=== PATIENT | female | born 1970 | race American Indian/Alaskan Native ===

== ENCOUNTER 2017-01-12 11:38 | Inpatient (IN) | payer BC ==
[2017-01-12] MEDS ORDERED: LOPRESSOR IV ONE (12:19)
[2017-01-12] MEDS ORDERED: NITRO-BID 2% TP ONE (12:19)
[2017-01-12] MEDS ORDERED: ASPIRIN PO ONE (12:19)
[2017-01-12] MEDS ORDERED: NITROSTAT SL ONE (12:19)
--- NOTE | 2017-01-12 12:24 | Emergency Department Report ---
ED Chest Pain HPI - General Chief Complaint: Chest Pain Stated Complaint: SOB/CHEST PAIN Time Seen by Provider: 01/12/17 12:17 Source: patient Mode of arrival: Ambulatory Limitations: No Limitations - History of Present Illness MD Complaint: chest pain -: Gradual Pain Location: substernal Pain Radiation: none Severity: moderate Severity scale (0 -10): 4 Quality: tightness, heaviness Consistency: constant Improves With: nothing Worsens With: nothing re: nausea Other Symptoms: denies: cough, fever, syncope, rash, acid taste in mouth, leg swelling, palpitations, burping, other Treatments Prior to Arrival: none Aspirin use within the Past 7 Days: (1) Yes - Related Data On Oral Contraceptives: No Home Medications Medication Instructions Recorded Confirmed Last Taken AtorvaSTATin [Lipitor] 40 mg PO QHS 01/12/17 01/12/17 Unknown metFORMIN [Glucophage] 850 mg PO BID 01/12/17 01/12/17 Unknown Previous Rx's Medication Instructions Recorded Last Taken Type ALBUTEROL Inhaler [ProAir HFA 2 puff IH QID PRN #30 inhalation 01/13/17 Unknown Rx Inhaler] Aspirin [Aspirin BABY CHEW TAB] 81 mg PO DAILY #30 tab.chew 01/13/17 Unknown Rx Carvedilol [Coreg] 6.25 mg PO BID #60 tablet 01/13/17 Unknown Rx Hydrochlorothiazide [HCTZ] 25 mg PO DAILY #30 tablet 01/13/17 Unknown Rx Lisinopril [Zestril TAB] 40 mg PO QDAY #30 tablet 01/13/17 Unknown Rx Allergies Allergy/AdvReac Type Severity Reaction Status Date / Time diphenhydramine HCl Allergy Itching Verified 10/03/15 00:27 [From Benadryl] Penicillins Allergy Itching Verified 07/27/13 23:35 [place] score - [place] Score Age > 65: (0) No Aspirin use within the Past 7 Days: (1) Yes 3 or more CAD Risk Factors: (0) No 2 or more Angina events in past 24 hrs: (0) No Known CAD with more than 50% Stenosis: (0) No Elevated Cardiac Markers: (0) No ST Deviation Greater than 0.5mm: (0) No [place] Score: 1 ED Review of Systems ROS: Stated complaint: SOB/CHEST PAIN Other details as noted in HPI Comment: All other systems reviewed and negative Constitutional: denies: chills, fever Eyes: denies: eye pain, eye discharge, vision change ENT: denies: ear pain, throat pain Respiratory: denies: cough, shortness of breath, wheezing Cardiovascular: denies: chest pain, palpitations Endocrine: no symptoms reported Gastrointestinal: denies: abdominal pain, nausea, diarrhea Genitourinary: denies: urgency, dysuria, discharge Musculoskeletal: denies: back pain, joint swelling, arthralgia Skin: denies: rash, lesions Neurological: denies: headache, weakness, paresthesias Psychiatric: denies: anxiety, depression Hematological/Lymphatic: denies: easy bleeding, easy bruising ED Past Medical Hx - Past Medical History Previous Medical History?: Yes Hx Hypertension: Yes Hx CVA: Yes - Surgical History Past Surgical History?: Yes Additional Surgical History: x 2 - Social History Smoking Status: Current Every Day Smoker Substance Use Type: None - Medications Home Medications: Home Medications Medication Instructions Recorded Confirmed Last Taken Type AtorvaSTATin [Lipitor] 40 mg PO QHS 01/12/17 01/12/17 Unknown History metFORMIN [Glucophage] 850 mg PO BID 01/12/17 01/12/17 Unknown History ALBUTEROL Inhaler [ProAir HFA 2 puff IH QID PRN #30 inhalation 01/13/17 Unknown Rx Inhaler] Aspirin [Aspirin BABY CHEW TAB] 81 mg PO DAILY #30 tab.chew 01/13/17 Unknown Rx Carvedilol [Coreg] 6.25 mg PO BID #60 tablet 01/13/17 Unknown Rx Hydrochlorothiazide [HCTZ] 25 mg PO DAILY #30 tablet 01/13/17 Unknown Rx Lisinopril [Zestril TAB] 40 mg PO QDAY #30 tablet 01/13/17 Unknown Rx ED Physical Exam - General Limitations: No Limitations General appearance: alert, in no apparent distress - Head Head exam: Present: atraumatic, normocephalic - Eye Eye exam: Present: normal appearance - ENT ENT exam: Present: mucous membranes moist - Neck Neck exam: Present: normal inspection - Respiratory Respiratory exam: Present: normal lung sounds bilaterally. Absent: respiratory distress - Cardiovascular Cardiovascular Exam: Present: regular rate, normal rhythm, normal heart sounds. Absent: irregular rhythm, systolic murmur, diastolic murmur, rubs, gallop, JVD , S3, S4 - GI/Abdominal GI/Abdominal exam: Present: soft, normal bowel sounds. Absent: distended, tenderness, guarding - Extremities Exam Extremities exam: Present: normal inspection - Back Exam Back exam: Present: normal inspection - Neurological Exam Neurological exam: Present: alert, oriented X3 - Psychiatric Psychiatric exam: Present: normal affect, normal mood - Skin Skin exam: Present: warm, dry, intact, normal color. Absent: rash ED Course Vital Signs 01/12/17 01/12/17 01/12/17 11:45 12:30 12:47 Temperature 98.6 F Pulse Rate 101 H 70 Respiratory 18 16 Rate Blood Pressure 221/115 178/88 Blood Pressure [Right] O2 Sat by Pulse 99 100 Oximetry 01/12/17 01/12/17 01/12/17 12:48 13:47 14:47 Temperature Pulse Rate 70 99 H 76 Respiratory 13 14 Rate Blood Pressure 178/88 Blood Pressure 171/98 179/106 [Right] O2 Sat by Pulse 99 98 Oximetry 01/12/17 01/12/17 01/12/17 16:00 17:00 18:00 Temperature Pulse Rate 83 84 Respiratory 21 17 11 L Rate Blood Pressure 123/62 129/73 Blood Pressure 142/84 [Right] O2 Sat by Pulse 96 95 98 Oximetry 01/12/17 01/12/17 01/12/17 18:20 18:40 18:50 Temperature Pulse Rate 89 83 76 Respiratory 18 21 19 Rate Blood Pressure 123/62 123/62 123/62 Blood Pressure [Right] O2 Sat by Pulse 96 97 93 Oximetry 01/12/17 01/12/17 01/12/17 19:00 19:30 19:35 Temperature 98.5 F Pulse Rate 73 85 70 Respiratory 20 21 15 Rate Blood Pressure 119/74 119/74 Blood Pressure 119/74 [Right] O2 Sat by Pulse 94 91 98 Oximetry 01/12/17 01/12/17 01/12/17 20:00 20:30 21:00 Temperature Pulse Rate 78 82 78 Respiratory 14 12 18 Rate Blood Pressure 134/81 134/81 134/81 Blood Pressure [Right] O2 Sat by Pulse 97 98 98 Oximetry 01/12/17 01/12/17 01/12/17 21:30 22:00 22:30 Temperature Pulse Rate 68 74 76 Respiratory 14 16 15 Rate Blood Pressure 129/71 130/61 130/61 Blood Pressure [Right] O2 Sat by Pulse 100 97 95 Oximetry 01/12/17 01/12/17 01/12/17 22:46 23:00 23:30 Temperature Pulse Rate 78 71 77 Respiratory 13 19 Rate Blood Pressure 130/61 144/84 144/84 Blood Pressure [Right] O2 Sat by Pulse 98 96 Oximetry 01/13/17 00:00 Temperature Pulse Rate 78 Respiratory 18 Rate Blood Pressure 137/62 Blood Pressure [Right] O2 Sat by Pulse 99 Oximetry ED Medical Decision Making - Lab Data Result diagrams: 01/12/17 12:15 01/13/17 06:28 - EKG Data EKG shows normal: sinus rhythm Rate: normal - EKG Data When compared to previous EKG there are: no significant change Interpretation: no acute changes, unchanged when compared t - Medical Decision Making Talk and discuss case with cardiology and IM and agree with admission , she had a recent ( 2 year old ) nuclear test but probably will need to be cath, chest pain free at this time , first set of enzymes negative. will admit. Critical care attestation.: If time is entered above; I have spent that time in minutes in the direct care of this critically ill patient, excluding procedure time. ED Disposition Clinical Impression: Chest pain Qualifiers: Chest pain type: precordial chest pain Qualified Code(s): R07.2 - Precordial pain Disposition: OP ADMITTED IP TO THIS HOSP Is pt being admited?: Yes Does the pt Need Aspirin: Yes Condition: Good Time of Disposition: 16:27
[2017-01-12 12:47] LABS: Basophils % (Auto) 0.6 % (0.0-1.8); Eosinophils % (Auto) 2.4 % (0.0-4.3); Hematocrit 40.1 % (30.3-42.9); Mean Corpuscular HGB Conc 33 % (30-34); Mean Corpuscular Hemoglobin 29 pg (28-32); Mean Corpuscular Volume 90 fl (79-97); Platelet Count 280 K/mm3 (140-440); Red Blood Count 4.47 M/mm3 (3.65-5.03); Red Cell Distribution Width 14.1 % (13.2-15.2); White Blood Count 11.5 K/mm3 (4.5-11.0)
[2017-01-12 13:05] LABS: Anion Gap 20 mmol/L; Blood Urea Nitrogen 7 mg/dL (7-17); Carbon Dioxide 23 mmol/L (22-30); Chloride 102.7 mmol/L (98-107); Glucose 158 mg/dL (65-100); Potassium 3.9 mmol/L (3.6-5.0); Sodium 142 mmol/L (137-145)
--- NOTE | 2017-01-12 14:22 | Consultation ---
History of Present Illness Consult date: 01/12/17 Requesting physician: CATALINA BLUM Consult reason: chest pain History of present illness: The patient is a 46 year old female with a history of hypertension, diabetes, tobacco abuse who presented with complaints of precordial chest pain that started last night. She describes the pain as pressure and well as a sharp pain. Associated with left arm numbness, shortness of breath, nausea and diaphoresis. She states the pain has been waxing and waning since last night but became so severe this morning that she drove herself to the ER. BP on presentation was 221/115. First troponin negative. She received ASA, nitropaste and IV metoprolol in the ER with improvement in her pain. Currently 12/05. Stress test done 09/2015 was negative for ischemia, EF 60%. Past History Past Medical History: diabetes, hypertension Past Surgical History: Social history: smoking (1 PPD), full code. denies: alcohol abuse, prescription drug abuse, IV drug use Family history: CAD (dad with MD) Medications and Allergies Allergies Allergy/AdvReac Type Severity Reaction Status Date / Time diphenhydramine HCl Allergy Itching Verified 10/03/15 00:27 [From Benadryl] Penicillins Allergy Itching Verified 07/27/13 23:35 Home Medications Medication Instructions Recorded Confirmed Last Taken Type AtorvaSTATin [Lipitor] 40 mg PO QHS 01/12/17 01/12/17 Unknown History Lisinopril [Zestril TAB] 40 mg PO QDAY 01/12/17 01/12/17 Unknown History metFORMIN [Glucophage] 850 mg PO BID 01/12/17 01/12/17 Unknown History Review of Systems Constitutional: no fever, no chills Ears, nose, mouth and throat: no nasal congestion, no nasal discharge, no sinus pressure Cardiovascular: chest pain, lightheadedness, shortness of breath, no palpitations, no leg edema Respiratory: shortness of breath, no cough, no cough with sputum, no congestion Gastrointestinal: nausea, no abdominal pain, no vomiting, no diarrhea, no constipation Genitourinary Female: no dysuria, no urgency Musculoskeletal: no neck stiffness, no neck pain, no myalgias Integumentary: no rash, no pruritis Neurological: numbness (left arm), headaches, migraines, no weakness, no parathesias Endocrine: no cold intolerance, no heat intolerance Hematologic/Lymphatic: no easy bruising, no easy bleeding Allergic/Immunologic: no urticaria, no wheezing Physical Examination Vital Signs Temp Pulse Resp BP Pulse Ox 98.6 F 101 H 18 221/115 99 01/12/17 11:45 01/12/17 11:45 01/12/17 11:45 01/12/17 11:45 01/12/17 11:45 General appearance: no acute distress, obese HEENT: Positive: PERRL, Normocephaly, Mucus Membranes Moist Neck: Positive: neck supple, trachea midline Cardiac: Positive: Reg Rate and Rhythm, S1/S2 Lungs: Positive: clear to auscultation Neuro: Positive: Grossly Intact Abdomen: Positive: Soft, Active Bowel Sounds. Negative: Tender Skin: Positive: Clear. Negative: Rash Extremities: Present: normal. Absent: edema Results 01/12/17 12:15 01/12/17 12:15 CBC 01/12/17 Range/Units 12:15 WBC 11.5 H (4.5-11.0) K/mm3 RBC 4.47 (3.65-5.03) M/mm3 Hgb 13.0 (10.1-14.3) gm/dl Hct 40.1 (30.3-42.9) % Plt Count 280 (140-440) K/mm3 Lymph # 3.6 (1.2-5.4) K/mm3 [place] # 0.7 (0.0-0.8) K/mm3 Eos # 0.3 (0.0-0.4) K/mm3 Baso # 0.1 (0.0-0.1) K/mm3 Comprehensive Metabolic Panel 01/12/17 Range/Units 12:15 Sodium 142 (137-145) mmol/L Potassium 3.9 (3.6-5.0) mmol/L Chloride 102.7 (98-107) mmol/L Carbon Dioxide 23 (22-30) mmol/L BUN 7 (7-17) mg/dL Creatinine 0.5 L (0.7-1.2) mg/dL Glucose 158 H (65-100) mg/dL Calcium 9.0 (8.4-10.2) mg/dL - Imaging and Cardiology EKG: image reviewed EKG interpretations - Telemetry EKG Rhythm: Sinus Rhythm - EKG Sinus rhythms and dysrhythmias: sinus rhythm QRS axis and voltage: left axis deviation Chamber hypertrophy or enlargement: left ventricular hypertro Assessment and Plan Chest pain first troponin negative, will trend no acute EKG changes stress MPI 09/2015: no ischemia repeat stress test in am continue ASA, nitropaste lipid panel in am Accelerated hypertension resume pt.'s home lisinopril, coreg, HCTZ Diabetes Tobacco abuse counseled on cessation Obesity Obtain additional sets of enzymes. Optimize anti-hypertensive regimen. Lexiscan thallium stress test in am. The patient has been seen in conjunction with Dr. Phelan who agrees with the assessment and plan of care. Thank you Dr. Blum for allowing us to participate in the care of this patient.
[2017-01-12 15:37] LABS: Creatine Kinase 85 units/L (30-135); Creatine Kinase MB < 1.0 ng/mL (0.0-4.0)
[2017-01-12] MEDS ORDERED: ZESTRIL PO SCH (16:00)
[2017-01-12] MEDS ORDERED: ZESTRIL ONE (16:19)
[2017-01-12] MEDS: ZESTRIL PO SCH (16:29)
--- NOTE | 2017-01-12 18:38 | Admit Criteria Form ---
Admission Criteria Documentation: CARDIOLOGY GRG Clinical Indications for Admission to Inpatient Care ( Place 'X' for any and all applicable criteria): Hospital admission is needed for appropriate care of the patient because of ANY ONE of the following (1): [ ] I. Hemodynamic instability as indicated by ALL of the following (1)(2)(3) (4)(5) [ ]a) Vital signs or other findings not as expected for chronic patient condition or baseline [ ]b) Instability indicated by ANY ONE of the following: [ ]i) Hypotension [ ]ii) Symptomatic Tachycardia unresponsive to treatment ( e.g., analgesia, fluids, sedation as indicated) [ ]iii) Inadequate perfusion indicated by ANY ONE of the following: [ ] 1) Lactic acidosis (> 2 mmol/L) [ ] 2) New abnormal capillary refill (> 3 seconds) [ ] 3) Reduced urine output [ ] 4) New altered mental status [ ]iv) Orthostatic vital sign changes unresponsive to treatment (e.g., fluids) [ ]v) IV inotropic or vasopressor medication required to maintain adequate blood pressure or perfusion [ ] II. Severe heart failure as indicated by ANY ONE of the following(17)(18) [ ]a) Respiratory distress [ ]b) Hypotension [ ]c) Anasarca (refractory to outpatient therapy) [ ]d) Cardiac arrhythmias of immediate concern [ ]e) Myocardial ischemia [ ] III. Cardiac arrhythmias or findings of immediate concern indicated by ANY ONE of the following (19)(20): [ ] a) Heart rhythms that are inherently dangerous or unstable indicated by ANY ONE of the following (21)(22)(23): [ ] i) Resuscitated ventricular fibrillation or cardiac arrest [ ] ii) Ventricular escape rhythm [ ] iii) Sustained ventricular tachycardia (30 seconds or more of ventricular rhythm at greater than 100 beats per minute) [ ] iv) Nonsustained ventricular tachycardia and ANY ONE of the following: [ ] 1) Suspected cardiac ischemia as cause or consequence of ventricular tachycardia [ ] 2) In setting of acute myocarditis [ ] b) Unstable cardiac conduction defects indicated by ANY ONE of the following(23)(24)(25) [ ] i) Type II second-degree atrioventricular block [ ]ii) Third-degree atrioventricular block [ ]iii) New-onset left bundle branch block with suspected myocardial ischemia [ ]c) Any heart rhythm and ANY ONE of the following (21)(22)(26)(27) (28) [ ] i) Continuous long-term ECG monitoring needed (e.g., initiation of drug requiring monitoring for more than 24 hours) [ ] ii) Patient has automatic implanted cardioverter defibrillator that is repeatedly firing, malfunctioning, or in need of immediate adjustment of settings beyond the scope of ambulatory or observation care [ ]d) Heart rhythms of concern due to ANY ONE of the following: [ ] i) Hypotension [ ] ii) Respiratory distress [ ] iii) Association with other significant symptoms (e.g., bradycardia with syncope or ongoing dizziness, supraventricular tachycardia with chest pain (14)(15)(17) [ ] IV. Monitoring for cardiac contusion beyond the scope of observation care needed [A](30)(31)(32) [ ] V. Surgical or device complication (e.g., valve replacement complication , pacemaker dysfunction) (35)(41)(44)(45)(46) [ ] . Inpatient palliative care needed. [B](49) Also use Inpatient Palliative Care Criteria [ ] VII. Nonbacterial thrombotic (marantic) endocarditis (36)(43)(47)(48) [X ] VIII. Cardiology condition, symptom, or finding for which emergency and observation care has failed or are not considered appropriate. [ ] IX. Acute valvular disease requiring inpatient as indicated by ANY ONE of the following (41) [ ]a) Acute valvular regurgitation (42) [ ]b) Noninfectious valvulitis (43) [ ]c) Obstructive valve thrombosis [ ]d) Paravalvular leak [ ]e) Other significant valvular disorder remaining after emergency or observation level of care (as appropriate) [ ]X. Pericardial disease requiring inpatient treatment as indicated by ANY ONE of the following (33)(34)(35)(36)(37) [ ]a) Suspected tamponade (38)(39)(40) [ ]b) Hemopericardium [ ]c) Other significant pericardial disorder remaining after emergency or observation level of care (as appropriate) [ ] XI. Cardiac ischemia beyond scope of emergency and observation care. [ ] XII. Hypertension requiring inpatient treatment as indicated by ANY ONE of the following (6)(7)(8) [ ]a) SBP greater than 220 mm Hg or DBP greater than 120 mmHg despite treatment [ ]b) SBP greater than 140 mm Hg or DBP greater than 100 mm Hg with evidence of acute end organ damage as indicated by ANY ONE of the following [ ] i) Altered mental status [ ] ii) Acute renal failure as indicated by new onset of ANY ONE of the following (9)(10)(11)(12)(13) [ ]1) 3-fold rise in serum creatinine from baseline [ ]2) Serum creatinine greater than 4 mg/dL ( 354 micromoles/L) with acute rise greater than 0.5 mg/dL (44.2 micromoles/L) [ ]3) Reduction of more than 75% in estimated glomerular filtration rate from baseline [ ]4) Estimated glomerular filtration rate less than 35 mL/min/1.73m2 (0.59 mL/sec/1.73m2) in child up to 18 years of age [ ]5) Cessation of urine output indicated by ALL of the following [ ]A. Adequate volume status [ ]B. Inadequate urine output as indicated by ANY ONE of the following [ ]a. Urine output less than 0.3 mL/kg/hr for 24 hours [ ]b. Anuria (urine output less than 0.1 mL/kg/hr) for 12 hours [ ] iii) Aortic dissection [ ] iv) Myocardial Ischemia [ ] v) Left ventricular heart failure [ ]vi) Retinal Hemorrhage [ ]vii) Other significant finding [ ]c) Hypertension in child requiring inpatient treatment as indicated by ALL of the following(14)(15)(16) [ ] i) Outpatient treatment not effective, not available, or not appropriate [ ]ii) SBP or DBP greater than 95th percentile for age [ ]iii) Evidence of acute end organ damage as indicated by ANY ONE of the following [ ]1) Altered mental status [ ]2) Acute renal failure as indicated by new onset of ANY ONE of the following(9)(10)(11)(12)(13) [ ]A. 3-fold rise in serum creatinine from baseline [ ]B. Serum creatinine greater than 4 mg/dL (354 micromoles/L) with acute rise greater than 0.5 mg/dL (44.2 micromoles/L) [ ]C. Reduction of more than 75% in estimated glomerular filtration rate from baseline [ ]D. Estimated glomerular filtration rate less than 35 mL/min/1.73m2 (0.59 mL/sec/1.73m2) in child up to 18 years of age [ ]E. Cessation of urine output indicated by ALL of the following [ ]a. Adequate volume status [ ]b. Inadequate urine output as indicated by ANY ONE of the following [ ]i) Urine output less than 0.3 mL/kg/hr for 24 hours [ ]ii) Anuria ( urine output less than 0.1 mL/kg/hr) for 12 hours [ ]3) Severe headache [ ]4) Visual disturbance [ ]5) Retinal hemorrhage [ ]6) Other significant finding [ ]XIII. Complications of transplanted heart indicated by ANY ONE of the following(61): [ ]a) Acute graft rejection requiring inpatient management (eg, intravenous immunosuppression)(62)(63) [ ]b) Acute graft heart failure indicated by ANY ONE of the following(64): [ ]i) Hemodynamic instability [ ]ii) Cardiac arrhythmias of immediate concern [ ]iii) Pulmonary edema that is very severe (eg, mechanical ventilation needed, imminent or likely, need for 100% oxygen to keep oxygen saturation above 90%) [ ]iv) Pulmonary edema that is persistent as indicated by ALL of the following: [ ]1) New need for oxygen therapy to keep oxygen saturation above 90% (or increased FiO2 need from baseline) [ ]2) Has not improved sufficiently with emergency department or observation care IV diuretics or other heart failure treatments[E] [ ]v) Altered mental status that is severe or persistent [ ]vi) Increased creatinine (new on laboratory test) with reduction of more than 50% in estimated glomerular filtration rate from baseline [ ]vii) Progressively (ongoing) rising creatinine (known from past laboratory test) with reduction of more than 25% in estimated glomerular filtration rate from baseline [ ]viii) Acute renal failure [ ]ix) Acute peripheral ischemia (eg, examination shows pulseless, cool, mottled, or cyanotic extremity) [ ]x) Pulmonary artery catheter monitoring needed [ ]xi) Other sign or symptom of heart failure requiring inpatient treatment (ie, too severe or not responsive to outpatient and observation care treatment) [ ]c) Infection requiring inpatient management (eg, Hemodynamic instability, need for intravenous antimicrobial treatment)(66)(67)(68)(69)(70) [ ]d) Cardiac allograft vasculopathy requiring inpatient management ( eg evidence of cardiac ischemia)(71) [ ]e) Other complication of transplanted heart (eg, stroke, severe pulmonary hypertension, severe valvular dysfunction) requiring inpatient management(72) The original [facility] content created by [employer] has been revised. The portions of the content which have been revised are identified through the use of italic text or in bold, and [facility] has neither reviewed nor approved the modified material. All other unmodified content is copyright [facility] [employer]. Please see references footnoted in the original [facility] [employer] edition 2016 Admission Criteria Met: Yes
[2017-01-12] MEDS ORDERED: TYLENOL PO PRN ×2 (18:51→21:06)
--- NOTE | 2017-01-12 21:02 | History and Physical Report ---
History of Present Illness Date of examination: 01/12/17 Date of admission: 01/12/17 Chief complaint: Chest pain since AM History of present illness: 46 y/o female with HTN and T2DM comes in for Chest pain since AM off and on.Pain is 4/10.Dull in character.Not radiating.No diaphoresis .No SOB or palpitations.No recent travel.Dada score 1 Past History Past Medical History: diabetes, hypertension Past Surgical History: Social history: smoking (1 PPD), full code. denies: alcohol abuse, prescription drug abuse, IV drug use Family history: CAD (dad with NH) Medications and Allergies Allergies Allergy/AdvReac Type Severity Reaction Status Date / Time diphenhydramine HCl Allergy Itching Verified 10/03/15 00:27 [From Benadryl] Penicillins Allergy Itching Verified 07/27/13 23:35 Home Medications Medication Instructions Recorded Confirmed Last Taken Type AtorvaSTATin [Lipitor] 40 mg PO QHS 01/12/17 01/12/17 Unknown History Lisinopril [Zestril TAB] 40 mg PO QDAY 01/12/17 01/12/17 Unknown History metFORMIN [Glucophage] 850 mg PO BID 01/12/17 01/12/17 Unknown History ALBUTEROL Inhaler [ProAir HFA 2 puff IH QID PRN #30 inhalation 01/13/17 Unknown Rx Inhaler] Aspirin [Aspirin BABY CHEW TAB] 81 mg PO DAILY #30 tab.chew 01/13/17 Unknown Rx Carvedilol [Coreg] 6.25 mg PO BID #60 tablet 01/13/17 Unknown Rx Hydrochlorothiazide [HCTZ] 25 mg PO DAILY #30 tablet 01/13/17 Unknown Rx Active Meds: Active Medications Acetaminophen (Tylenol) 650 mg PO Q6HR PRN PRN Reason: Pain Aspirin (Baby Aspirin) 81 mg PO DAILY [facility] Carvedilol (Coreg) 6.25 mg PO BID [facility] Hydrochlorothiazide (Hctz) 25 mg PO DAILY [facility] Lisinopril (Zestril) 40 mg PO DAILY [facility] Last Admin: 01/12/17 16:29 Dose: 40 mg Review of Systems All systems: negative Constitutional: no weight loss, no weight gain Ears, nose, mouth and throat: no hoarseness, no sore throat Breasts: deferred Cardiovascular: chest pain, no orthopnea, no syncope, no lightheadedness, no dyspnea on exertion Respiratory: no cough with sputum, no shortness of breath, no dyspnea on exertion Gastrointestinal: no nausea, no vomiting, no diarrhea, no constipation, no change in bowel habits Genitourinary Female: no dysuria, no urinary frequency, no urgency, no stress incontinence, no post void dribbling Menstruation: period normal Musculoskeletal: no neck stiffness, no neck pain, no shooting arm pain, no arm numbness/tingling Integumentary: no rash, no pruritis, no redness, no sores Neurological: no seizures, no syncope Psychiatric: no anxiety, no depression Endocrine: no cold intolerance, no heat intolerance, no polydipsia, no polyuria Hematologic/Lymphatic: no easy bruising, no easy bleeding Allergic/Immunologic: no urticaria, no allergic rhinitis, no wheezing Exam - Physical Exam Narrative exam: WD WN female lyimg in bed comfortably - Constitutional Vitals: Temp Pulse Resp BP Pulse Ox 98.5 F 70 15 119/74 98 01/12/17 19:35 01/12/17 19:35 01/12/17 19:35 01/12/17 19:35 01/12/17 19:35 General appearance: Present: no acute distress, well-nourished - EENT Eyes: Present: PERRL ENT: hearing intact, clear oral mucosa - Neck Neck: Present: supple, normal ROM - Respiratory Respiratory effort: normal Respiratory: bilateral: CTA - Cardiovascular Rhythm: regular Heart Sounds: Present: S1 & S2. Absent: rub, click - Extremities Extremities: pulses symmetrical, No edema Peripheral Pulses: within normal limits - Abdominal General gastrointestinal: Present: soft, non-tender, non-distended, normal bowel sounds Female genitourinary: Present: normal - Integumentary Integumentary: Present: clear, warm, dry - Musculoskeletal Musculoskeletal: gait normal, strength equal bilaterally - Psychiatric Psychiatric: appropriate mood/affect, intact judgment & insight - Neurologic Neurologic: CNII-XII intact, moves all extremities - Allied Health Allied health notes reviewed: nursing Results - Labs CBC & Chem 7: 01/12/17 12:15 01/13/17 06:28 Labs: Laboratory Last Values WBC 11.5 K/mm3 (4.5-11.0) H 01/12/17 12:15 RBC 4.47 M/mm3 (3.65-5.03) 01/12/17 12:15 Hgb 13.0 gm/dl (10.1-14.3) 01/12/17 12:15 Hct 40.1 % (30.3-42.9) 01/12/17 12:15 MCV 90 fl (79-97) 01/12/17 12:15 MCH 29 pg (28-32) 01/12/17 12:15 MCHC 33 % (30-34) 01/12/17 12:15 RDW 14.1 % (13.2-15.2) 01/12/17 12:15 Plt Count 280 K/mm3 (140-440) 01/12/17 12:15 Lymph % (Auto) 31.5 % (13.4-35.0) 01/12/17 12:15 Casey % (Auto) 5.9 % (0.0-7.3) 01/12/17 12:15 Eos % (Auto) 2.4 % (0.0-4.3) 01/12/17 12:15 Baso % (Auto) 0.6 % (0.0-1.8) 01/12/17 12:15 Lymph # 3.6 K/mm3 (1.2-5.4) 01/12/17 12:15 Casey # 0.7 K/mm3 (0.0-0.8) 01/12/17 12:15 Eos # 0.3 K/mm3 (0.0-0.4) 01/12/17 12:15 Baso # 0.1 K/mm3 (0.0-0.1) 01/12/17 12:15 Seg Neutrophils % 59.6 % (40.0-70.0) 01/12/17 12:15 Seg Neutrophils # 6.9 K/mm3 (1.8-7.7) 01/12/17 12:15 D-Dimer < 135 ng/mlDDU (0-234) 01/12/17 12:47 Sodium 142 mmol/L (137-145) 01/12/17 12:15 Potassium 3.9 mmol/L (3.6-5.0) 01/12/17 12:15 Chloride 102.7 mmol/L (98-107) 01/12/17 12:15 Carbon Dioxide 23 mmol/L (22-30) 01/12/17 12:15 Anion Gap 20 mmol/L 01/12/17 12:15 BUN 7 mg/dL (7-17) 01/12/17 12:15 Creatinine 0.5 mg/dL (0.7-1.2) L 01/12/17 12:15 Estimated GFR > 60 ml/min 01/12/17 12:15 BUN/Creatinine Ratio 14.00 % 01/12/17 12:15 Glucose 158 mg/dL (65-100) H 01/12/17 12:15 Calcium 9.0 mg/dL (8.4-10.2) 01/12/17 12:15 Total Creatine Kinase 85 units/L (30-135) 01/12/17 14:49 CK-MB (CK-2) < 1.0 ng/mL (0.0-4.0) 01/12/17 14:49 CK-MB (CK-2) Rel Index 1.1 (0-4) 01/12/17 14:49 Troponin T < 0.010 ng/mL (0.00-0.029) 01/12/17 18:06 Lipase 21 units/L (13-60) 01/12/17 12:47 HCG, Qual Negative (Negative) 01/12/17 12:15 Short CBC 01/12/17 Range/Units 12:15 WBC 11.5 H (4.5-11.0) K/mm3 Hgb 13.0 (10.1-14.3) gm/dl Hct 40.1 (30.3-42.9) % Plt Count 280 (140-440) K/mm3 BMP 01/12/17 12:15 Sodium 142 Potassium 3.9 Chloride 102.7 Carbon Dioxide 23 BUN 7 Creatinine 0.5 L Glucose 158 H Calcium 9.0 Cardiac Enzymes 01/12/17 01/12/17 01/12/17 Range/Units 12:15 14:49 18:06 Total Creatine Kinase 85 (30-135) units/L CK-MB (CK-2) < 1.0 (0.0-4.0) ng/mL Troponin T < 0.010 < 0.010 < 0.010 (0.00-0.029) ng/mL Short CBC 03/20/17 Range/Units 12:15 WBC 11.5 H (4.5-11.0) K/mm3 Hgb 13.0 (10.1-14.3) gm/dl Hct 40.1 (30.3-42.9) % Plt Count 280 (140-440) K/mm3 [facility] 01/12/17 01/13/17 12:15 06:28 Sodium 142 141 Potassium 3.9 3.8 Chloride 102.7 104.9 Carbon Dioxide 23 22 BUN 7 10 Creatinine 0.5 L 0.5 L Glucose 158 H 204 H Calcium 9.0 8.7 Cardiac Enzymes 01/12/17 01/12/17 01/12/17 Range/Units 12:15 14:49 18:06 Total Creatine Kinase 85 (30-135) units/L CK-MB (CK-2) < 1.0 (0.0-4.0) ng/mL Troponin T < 0.010 < 0.010 < 0.010 (0.00-0.029) ng/mL 01/12/17 01/13/17 Range/Units 21:28 06:28 Total Creatine Kinase 78 65 (30-135) units/L CK-MB (CK-2) < 1.0 < 1.0 (0.0-4.0) ng/mL Troponin T < 0.010 < 0.010 (0.00-0.029) ng/mL - Imaging and Cardiology EKG: report reviewed (Sinus rhythm) Assessment and Plan Advance Directives: Yes (Full code) VTE prophylaxis?: Chemical Plan of care discussed with patient/family: Yes - Patient Problems (1) Chest pain Current Visit: Yes Status: Acute Qualifiers: Chest pain type: precordial chest pain Qualified Code(s): R07.2 - Precordial pain Plan to address problem: Serial cardiac enzymes+Lexiscan Cardiology consult requested (2) Uncontrolled hypertension Current Visit: No Status: Chronic Plan to address problem: Cont Anti hypertensives (3) T2DM (type 2 diabetes mellitus) Current Visit: Yes Status: Chronic Qualifiers: Diabetes mellitus complication status: without complication Diabetes mellitus complication detail: D Diabetic retinopathy severity: D Proliferative retinopathy type: P Diabetes mellitus macular edema: D Diabetes mellitus dedicated intermodal truck driver insulin use: without assisted use Laterality: L Chronic kidney disease stage: C Qualified Code(s): E11.9 - Type 2 diabetes mellitus without complications Plan to address problem: Cont oral hypoglycemics (4) HLD (hyperlipidemia) Current Visit: Yes Status: Chronic Qualifiers: Hyperlipidemia type: mixed hyperlipidemia Qualified Code(s): E78.2 - Mixed hyperlipidemia Plan to address problem: Cont statins (5) DVT prophylaxis Current Visit: Yes Status: Acute Plan to address problem: on Lovenox
[2017-01-12] MEDS ORDERED: SODIUM CHLORIDE FLUSH SYRINGE 10 ML IV PRN (21:04)
[2017-01-12] MEDS ORDERED: DULCOLAX PR PRN (21:06)
[2017-01-12] MEDS ORDERED: MILK OF MAGNESIA PO PRN (21:06)
[2017-01-12] MEDS ORDERED: ZOFRAN IV PRN (21:06)
[2017-01-12 22:09] LABS: Creatine Kinase 78 units/L (30-135)
[2017-01-12 22:13] LABS: Creatine Kinase MB < 1.0 ng/mL (0.0-4.0)
[2017-01-12] MEDS ORDERED: COREG ONE (22:36)
[2017-01-12] MEDS: COREG PO SCH (22:46)
[2017-01-12] MEDS: GLUCOPHAGE PO SCH (23:03)
[2017-01-13 07:22] LABS: Anion Gap 18 mmol/L; Blood Urea Nitrogen 10 mg/dL (7-17); Calcium 8.7 mg/dL (8.4-10.2); Carbon Dioxide 22 mmol/L (22-30); Chloride 104.9 mmol/L (98-107); Glucose 204 mg/dL (65-100); Potassium 3.8 mmol/L (3.6-5.0); Sodium 141 mmol/L (137-145)
[2017-01-13 07:25] LABS: Creatine Kinase 65 units/L (30-135)
--- NOTE | 2017-01-13 07:36 | XRay Report ---
ROUTINE CHEST, TWO VIEWS: HISTORY: chest pain. The trachea, heart, mediastinal contour, lung bermudez and bony thorax are unremarkable. IMPRESSION: Unremarkable chest x-ray.
[2017-01-13 07:45] LABS: Creatine Kinase MB < 1.0 ng/mL (0.0-4.0)
[2017-01-13 08:25] LABS: Cholesterol 170 mg/dL (50-199); HDL Cholesterol 28 mg/dL (40-59); LDL Cholesterol,Direct 92 mg/dL (50-130)
[2017-01-13] MEDS ORDERED: LEXISCAN IV ONE ×2 (08:55→09:03)
[2017-01-13] MEDS ORDERED: BABY ASPIRIN PO SCH (10:00)
[2017-01-13] MEDS ORDERED: HCTZ PO SCH (10:00)
--- NOTE | 2017-01-13 10:56 | Discharge Summary ---
Providers - Providers Date of Admission: 01/12/17 21:06 Date of discharge: 01/13/17 Attending physician: MAUREEN COSTELLO MD Primary care physician: NURSE'S ASSISTANT Hospitalization Condition: Stable Disposition: DISCHARGED TO HOME OR SELFCARE Time spent for discharge: 35 mins Exam - Constitutional Vitals: Temp Pulse Resp BP Pulse Ox 98.1 F 82 20 159/84 98 01/13/17 08:00 01/13/17 08:00 01/13/17 08:00 01/13/17 08:00 01/13/17 10:50 Plan Activity: advance as tolerated Diet: low salt, diabetic Special Instructions: record daily weights, record daily BP diary, record blood sugar diary, smoking cessation Follow up with: PRIMARY CAREMD [Primary Care Provider] - 3-5 Days CELESTINE HIGGINBOTHAM MD [Staff Physician] - 7 Days Prescriptions: Aspirin [Aspirin BABY CHEW TAB] 81 mg PO DAILY #30 tab.chew Carvedilol [Coreg] 6.25 mg PO BID #60 tablet Hydrochlorothiazide [HCTZ] 25 mg PO DAILY #30 tablet
[2017-01-13] MEDS: ZESTRIL PO SCH (11:22)
[2017-01-13] MEDS: COREG PO SCH (11:23)
[2017-01-13] MEDS: GLUCOPHAGE PO SCH (11:24)
--- NOTE | 2017-01-13 11:50 | Treadmill Report ---
NUCLEAR PERFUSION SCAN NUCLEAR STRESS TEST PROTOCOL: The patient was brought to the stress lab in a postabsorptive state, given 10 mCi of technetium 99m at rest. The patient underwent rest imaging. The patient underwent Lexiscan stress test. At peak stress, the patient was given 26 mCi of technetium 99m. Shortly thereafter, the patient underwent stress imaging. Raw imaging reveals mild GI artifact. No significant motion artifact. SPECT imaging examined carefully in horizontal long axis, vertical long axis, and short axis views. Grossly, there is normal homogenous uptake of radioisotope in all reported segments. No evidence of significant fixed or reversible perfusion defects suggestive of prior infarction or ischemia. Gated wall motion reveals normal systolic thickening, calculated ejection fraction of 54%. No TID. CONCLUSIONS: 1. Normal myocardial perfusion scan without evidence of active ischemia or prior infarction. 2. Normal left ventricular systolic performance without evidence of transient ischemic dilatation or stress-induced segmental wall motion abnormalities. JOB# [id number] HERNAN/JULIANA
[2017-01-13 11:55] LABS: Triglycerides 425 mg/dL (2-149)
--- NOTE | 2017-01-13 12:15 | Progress Note ---
Assessment and Plan Chest pain troponin negative x 4 no acute EKG changes stress test today negative for ischemia continue ASA, statin Accelerated hypertension BP improved continue lisinopril, coreg, HCTZ Diabetes Tobacco abuse counseled on cessation Obesity Stress test negative for ischemia. Recommending continuing medical management and aggressive risk factor modification. Follow up in the office with Dr. Phelan in 2 weeks. The patient has been seen in conjunction with Dr. Phelan who agrees with the assessment and plan of care. Subjective Date of service: 01/13/17 Principal diagnosis: chest pain Interval history: Pt. is resting comfortably in bed. No further chest pain. Sinus rhythm on the monitor. Objective Last Vital Signs Temp 98.1 F 01/13/17 08:00 Pulse 82 01/13/17 11:23 Resp 20 01/13/17 10:00 BP 159/84 01/13/17 11:23 Pulse Ox 98 01/13/17 10:50 - Physical Examination General: No Apparent Distress HEENT: Positive: PERRL, Normocephaly, Mucus Membranes Moist Neck: Positive: neck supple, trachea midline Cardiac: Positive: Reg Rate and Rhythm, S1/S2 Lungs: Positive: clear to auscultation Neuro: Positive: Grossly Intact Abdomen: Positive: Soft, Active Bowel Sounds. Negative: Tender Skin: Positive: Clear. Negative: Rash Extremities: Present: normal. Absent: edema - Labs and Meds Cardiac Enzymes 01/12/17 01/13/17 Range/Units 21:28 06:28 CK-MB (CK-2) < 1.0 < 1.0 (0.0-4.0) ng/mL Lipids 01/13/17 Range/Units 06:28 Triglycerides 425 H (2-149) mg/dL Cholesterol 170 (50-199) mg/dL HDL Cholesterol 28 L (40-59) mg/dL Cholesterol/HDL Ratio 6.07 % Comprehensive Metabolic Panel 01/13/17 Range/Units 06:28 Sodium 141 (137-145) mmol/L Potassium 3.8 (3.6-5.0) mmol/L Chloride 104.9 (98-107) mmol/L Carbon Dioxide 22 (22-30) mmol/L BUN 10 (7-17) mg/dL Creatinine 0.5 L (0.7-1.2) mg/dL Glucose 204 H (65-100) mg/dL Calcium 8.7 (8.4-10.2) mg/dL - Imaging and Cardiology EKG: report reviewed (Sinus rhythm) - Telemetry EKG Rhythm: Sinus Rhythm - EKG Sinus rhythms and dysrhythmias: sinus rhythm QRS axis and voltage: left axis deviation Chamber hypertrophy or enlargement: left ventricular hypertro
[2017-01-13 13:15] VITALS: BP 148/82
--- NOTE | 2017-01-13 13:34 | Query- Chest Pain ---
Katt Aldridge____Nikki Date: 01/13/17 Shilpa/CDS: Savannahaleksandra Ruiz Phone#:____[phone] Exercise your independent professional judgment when responding to query. Questions asked do not imply a particular answer is desired or expected. We greatly appreciate your clarification on this issue. Clinical Documentation States: 46 year old female was admitted on 01/12/17. The H&P states " Chest pain Current Visit: Yes Status: Acute Qualifiers: Chest pain type: precordial chest pain Qualified Code(s): R07.2 - Precordial pain Plan to address problem: Serial cardiac enzymes+Lexiscan Cardiology consult requested " Cardiology progress note states " Assessment and Plan Chest pain troponin negative x 4 no acute EKG changes stress test today negative for ischemia continue ASA, statin " Please document the etiology of Chest Pain: [ ] Myocardial Infarction [ ] Pneumonia [ ] Mediastinitis [ x] Costochondritis [ ] Pulmonary Embolism [ ] Coronary Artery Disease [ ] GERD [ ] Other: [ ] Comment/Explanation: Present on Admission: [x ] Yes (Y) [ ] Clinically undeterminable (W) [ ] No(N) Please document response in your Progress Notes and/or Discharge Summary and indicate if the condition was present on admission. JR
== END 2017-01-13 15:55 | disposition home or self-care (01) | DRG 206 ==
LOC: ED 11:38 → 4A 21:06
PROVIDERS: ADMIT Internal Medicine; ATTEND Internal Medicine
DX: M94.0 Chondrocostal junction syndrome [Tietze] (principal); R07.2 Precordial pain; I10 Essential (primary) hypertension; E11.9 Type 2 diabetes mellitus without complications; E78.5 Hyperlipidemia, unspecified; E66.9 Obesity, unspecified; F17.200 Nicotine dependence, unspecified, uncomplicated; Z88.0 Allergy status to penicillin; Z86.73 Personal history of transient ischemic attack (TIA), and cerebral infarction without residual deficits; Z88.8 Allergy status to other drugs, medicaments and biological substances; Z79.82 Long term (current) use of aspirin; Z82.49 Family history of ischemic heart disease and other diseases of the circulatory system; Z68.38 Body mass index [BMI] 38.0-38.9, adult
CPT/HCPCS: 36415; 71020; 78452; 80048; 80061; 82550; 82553; 83690; 84484; 84703; 85025; 85379; 93005; 93010; 93017; 96374; A9270-GY; A9502; J2785